=== PATIENT | female | born 1985 | race Caucasian/White ===

== ENCOUNTER 2016-04-07 15:45 | Emergency (ER) ==
[2016-04-07 16:03] VITALS: BP 148/88
[2016-04-07 16:18] LABS: URINE MICRO REVIEW NEEDED? NO; URINE SOURCE CLEAN CATCH
[2016-04-07 16:28] LABS: BILIRUBIN URINE NEGATIVE (NEGATIVE); BLOOD URINE SMALL (NEGATIVE); COLOR YELLOW; GLUCOSE URINE NEGATIVE (NEGATIVE); LEUKOCYTES URINE SMALL (NEGATIVE); NITRITE URINE POSITIVE (NEGATIVE); PH URINE 5.5; PROTEIN URINE TRACE mg/dL (NEGATIVE); SP GRAVITY URINE 1.017; TURBIDITY URINE CLEAR (CLEAR); UROBILINOGEN URINE NORMAL (NORMAL)
[2016-04-07 16:32] LABS: UR EPITHELIAL CELLS <10 /HPF (<10); URINE BACTERIA 4+ /HPF; URINE CULTURE NEEDED? YES; URINE RBC <10 /HPF (<10)
[2016-04-07] MEDS ORDERED: ZOFRAN ODT PO ONE (17:09)
[2016-04-07] MEDS ORDERED: XYLOCAINE-MPF 1% INJ ONE (17:09)
[2016-04-07] MEDS ORDERED: ULTRAM PO ONE (17:09)
[2016-04-07] MEDS ORDERED: ROCEPHIN IM ONE (17:09)
--- NOTE | 2016-04-07 17:17 | PROVIDER DOCUMENTATION ---
HPI-Female /OB/Breast - General Chief Complaint: General Adult Stated Complaint: chills,nausea,dizzy,lt side pain Time Seen by Provider: 04/07/16 16:59 Source: reports: patient Allergies/Adverse Reactions: Patient Allergies Allergy/AdvReac Type Severity Reaction Status Date / Time povidone-iodine Allergy Unknown Verified 08/26/15 11:27 [From Betadine] soap * [From Betadine] Allergy Unknown Verified 08/26/15 11:27 - History of Present Illness-Female /OB Nature of Presenting Problem: Pt is 31 y/o F presents to the ED with L flank pain radiates to the L side back. Pt states ovarian cyst in past. Pt states symptoms started yesterday. Pt states N and dizziness. Pt states chills and possible F. Does patient report she is ?: No Location of complaint: reports: left flank Radiation: reports: back (L side) Quality of Pain: reports: aching, cramping Severity in ED: reports: moderate Onset/Duration: reports: 24 hours ago Timing: reports: still present, intermittent Context/Activities at Onset: reports: light activity Vaginal Symptoms: reports: no symptoms Vaginal Bleeding Amount: None Urinary Symptoms: reports: frequency. denies: anuria, dysuria, dribbling, hematuria, hesitancy, incontinent, nocturia, polyuria, retention, urgency, low back pain Related Symptoms: reports: no symptoms Leakage of Fluid: none Sexual intercourse history: reports: Single Partner Contraception: reports: none Modifying Factors: improves with: nothing Associated Symptoms: reports: anxiety, dizziness, fever/chills, nausea. denies : back/neck pain, chest pain, constipation, cough, diaphoresis, diarrhea, fatigue, joint pain, loss of appetite, malaise, muscle aches, rash, seizure, sensory/motor loss, swelling/mass in abdomen, syncope, vomiting, weakness, trouble walking Similar Symptoms Previously?: Yes Recently seen or treated by another doctor?: No Review of Systems - Adult - REVIEW OF SYSTEMS - ADULT Constitutional: reports: chills, fever Eyes: denies: blurred vision, double vision Ears, Nose, Mouth & Throat: denies: ear pain, nose pain, throat pain Cardiovascular: reports: irregular heart rate (tachy). denies: chest pain, heart murmur Respiratory: denies: cough, shortness of breath, wheezing Gastrointestinal: reports: abdominal pain (L flank), nausea. denies: diarrhea, poor appetite, vomiting Genitourinary: denies: dysuria, hematuria Musculoskeletal: reports: back pain (L side). denies: bone pain, joint pain, neck pain Integumentary: denies: hives, itching Neurological: reports: dizziness/vertigo (dizziness). denies: headache/ migraines Psychiatric: reports: no symptoms reported Endocrine: reports: no symptoms reported Hematologic/Lymphatic: reports: no symptoms reported Allergic/Immunologic: reports: no symptoms reported All Other Systems: Reviewed and Negative Past History - Adult - PAST MEDICAL HISTORY-ADULT Review of Records: reports: Nursing Assessment Review, Medications Reviewed, Social history reviewed & non-contributory. Major Childhood Illnesses: reports: denies history Cardiovascular: reports: HTN Respiratory: reports: denies history Gastrointestinal: reports: denies history Obstetrical/Gynecological: reports: denies history Genitourinary: reports: chronic UTI's, other (Endometriosis) Musculoskeletal: reports: other (Shoulder dislocation) Neurological: reports: past injury Endocrine/Immune: reports: denies history Other Conditions: reports: denies history - PRIOR SURGERIES/PROCEDURES Surgical/Procedure History: reports: - PRIOR HOSPITALIZATIONS Prior Hospitalizations: reports: none - IMMUNIZATION STATUS Childhood Immunizations: See Nurse Assessment Flu Vaccine: See Nurse Assessment - FAMILY HISTORY Family History: reviewed, not pertinent - SOCIAL HISTORY Smoking: cigarettes, greater than 1 pack/day Provider spent 3-5 mins advising pt. on dangers of tobacco.: Discussed manners to quit use, and f/u contacts for add'l counseling. Substance Use: alcohol, marijuana Alcohol Use Frequency: occasionally Number of drinks per typical drinking period:: 3-4 drinks Living Situation: family Physical Exam-General - PHYSICAL EXAM-ADULT Initial Vital Signs Reviewed: Yes - CONSTITUTIONAL General Appearance: alert, mild distress, anxious. negative: appears well (ill in appearance) - EYES Eyes: PERRL/EOMI, pink conjunctivae - HEAD, EARS, NOSE, MOUTH & THROAT HENMT: normocephalic/atraumatic, moist mucous membranes, normal ENT inspection - NECK Neck: non-tender, full range of motion, normal inspection - RESPIRATORY Respiratory: chest non-tender, lungs clear, normal breath sounds - CARDIOVASCULAR Cardiovascular: normal peripheral pulses, no edema, tachycardia - GASTROINTESTINAL (ABDOMEN) Abdominal Exam: normal bowel sounds, soft, tenderness (L flank and LLQ) - LYMPHATIC Lymphatic: no adenopathy - MUSCULOSKELETAL Back Exam: normal inspection, no vertebral tenderness, CVA tenderness (L side) Extremity: normal range of motion, non-tender, normal gait - SKIN Integumentary: normal color, normal turgor, warm/dry - NEUROLOGIC 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-XII nml as tested, grossly normal, no motor/sensory deficits - PSYCHIATRIC Psych/Mental Status: normal thought content, normal thought process, oriented x 3, anxious Progress - PLAN OF CARE/RESULTS Progress/Plan/Lab Results: Laboratory Tests 04/07/16 16:10 Urine Source CLEAN CATCH Urine Color YELLOW Urine Turbidity CLEAR Urine pH 5.5 Ur Specific [place] 1.017 Urine Protein TRACE A Ur Glucose (Stick) NEGATIVE Ur Ketones (Stick) NEGATIVE Urine Blood SMALL A Urine Nitrite POSITIVE A Urine Bilirubin NEGATIVE Urobilinogen Dipstick NORMAL Urine Leukocytes SMALL A Urine WBC (Auto) 10-20 A Urine RBC (Auto) <10 U Epithel Cells (Auto) <10 Urine Bacteria (Auto) 4+ Orders Category Date Time Status UA NIMS W/REFLEX CULT [URINALYSIS] Stat Lab 04/07/16 16:10 Completed URINE CULTURE [RM] Routine Lab 04/07/16 17:13 Received CefTRIAXONE [Rocephin] Med 04/07/16 17:09 Discontinued 1 gm IM NOW ONE Lidocaine 1% Pf [Xylocaine-Mpf 1%] Med 04/07/16 17:09 Discontinued 5 ml INJ NOW ONE Ondansetron Odt [Zofran Odt] Med 04/07/16 17:09 Discontinued 4 mg PO NOW ONE Tramadol [Ultram] Med 04/07/16 17:09 Discontinued 50 mg PO NOW ONE EKG [EKG] Stat Ther 04/07/16 16:05 Ordered Vital Signs - 24 hr 04/07/16 16:00 Temperature 99.5 F Pulse Rate 115 H Respiratory 20 Rate Blood Pressure 148/88 O2 Sat by Pulse 100 Oximetry - EKG 1 Time of EKG reading by physician:: 16:08 EKG Read and Signed by:: Dinh Hudson EKG Interpretation (*Must complete 3 of following elements*): Abnormal Rate: 114 Rhythm: sinus tachycardia Comments: possible L atrial enlargement; nonspecific ST abnormality Departure - Departure Time of Disposition Order: 17:19 DIAGNOSIS: Pyelonephritis UTI (urinary tract infection) Qualifiers: Urinary tract infection type: site unspecified Hematuria presence: without hematuria Qualified Code(s): N39.0 - Urinary tract infection, site not specified Disposition: HOME 01 Certified Medical Emergency: Emergent Condition: Stable Additional Instructions: Follow up with Primary Physician Tuesday. ED Follow Up Instructions: You have been treated by a care provider in the Emergency Department. These instructions are being provided to you so you can have an understanding of how to care for yourself upon discharge. Upon discharge from the Emergency Department, you are responsible for making arrangements for follow-up care by a physician of your choice. Take all prescribed medications as directed. Return to the Emergency Department immediately for any new or worsening symptoms. You may call the Physician Referral phone number at [phone] to obtain a list of Physicians who are taking new patients. Prescriptions: Ciprofloxacin HCl [Cipro] 500 mg PO BID 10 Days Hydrocodone/Acetaminophen [[place] 7.5-325 Tablet] 1 each PO TID PRN PRN #15 tablet PRN Reason: Pain Promethazine [Phenergan] 25 mg PO Q6H PRN PRN #20 tablet PRN Reason: Pain Referrals: Eitan John [Primary Care Provider] - Attestation - Scribe Verification/Attestation Scribe:: Dara Flores Acting as Scribe for:: Dinh Hudson Scribe documention review:: This chart was documented by a scribe and accurately reflects the service the provider performed and the decisions made by the provider.
--- NOTE | 2016-04-08 10:52 | EKG Report ---
Test Performed on : 04/07/2016 4:08:20 PM Test Reason : pain Blood Pressure : / mmHG Vent. Rate : 114 BPM Atrial Rate : 114 BPM P-R Int : 128 ms QRS Dur : 078 ms QT Int : 308 ms P-R-T Axes : 073 075 028 degrees QTc Int : 424 ms Sinus tachycardia. Possible Left atrial enlargement Nonspecific ST abnormality Abnormal ECG No previous ECGs available Unconfirmed Result
== END 2016-04-07 18:00 | disposition home or self-care (01) ==
LOC: ED 15:45
DX: N12 Tubulo-interstitial nephritis, not specified as acute or chronic (principal); N39.0 Urinary tract infection, site not specified; R10.9 Unspecified abdominal pain; R10.32 Left lower quadrant pain; R00.0 Tachycardia, unspecified; M54.9 Dorsalgia, unspecified; R11.0 Nausea; R42 Dizziness and giddiness; R35.0 Frequency of micturition; R50.9 Fever, unspecified; I10 Essential (primary) hypertension; Z87.440 Personal history of urinary (tract) infections; N80.9 Endometriosis, unspecified; F17.210 Nicotine dependence, cigarettes, uncomplicated; Z71.6 Tobacco abuse counseling
CPT/HCPCS: 81001; 87077; 87088; 87186; 93005; 96372; J0696

== ENCOUNTER 2019-04-20 14:27 | Inpatient (IN) ==
[2019-04-20] MEDS ORDERED: SALINE LOCK IV FLUID XX ONE (15:19)
[2019-04-20] MEDS ORDERED: TUBERSOL ID ONE (15:20)
[2019-04-20] MEDS ORDERED: PHENOBARBITAL IV PRN (15:20)
[2019-04-20] MEDS ORDERED: MAALOX PLUS LIQUID PO PRN (15:20)
[2019-04-20] MEDS ORDERED: D5W 1,000 ML IV PRN (15:20)
[2019-04-20] MEDS ORDERED: DULCOLAX PR PRN (15:20)
[2019-04-20] MEDS ORDERED: ZOFRAN IV PRN (15:20)
[2019-04-20] MEDS ORDERED: DESYREL PO PRN (15:20)
[2019-04-20] MEDS ORDERED: IMODIUM PO PRN (15:20)
[2019-04-20] MEDS ORDERED: LIBRIUM PO SCH (15:30)
[2019-04-20] MEDS ORDERED: M.V.I.-12 10 ML, FOLIC ACID 1 MG, MAGNESIUM SULFATE 1 GM, THIAMINE 100 MG in NS 1,000 ML IV ONE (16:00)
[2019-04-20 16:25] LABS: URINE SOURCE VOIDED
[2019-04-20 16:26] LABS: BILIRUBIN URINE NEGATIVE (NEGATIVE); BLOOD URINE NEGATIVE (NEGATIVE); COLOR YELLOW; GLUCOSE URINE NEGATIVE (NEGATIVE); KETONE URINE NEGATIVE (NEGATIVE); LEUKOCYTES URINE NEGATIVE (NEGATIVE); NITRITE URINE NEGATIVE (NEGATIVE); PH URINE 6.5; PROTEIN URINE TRACE mg/dL (NEGATIVE); SP GRAVITY URINE 1.026; TURBIDITY URINE HAZY (CLEAR); UR EPITHELIAL CELLS <10 /HPF (<10); URINE BACTERIA 2+ /HPF; URINE RBC <10 /HPF (<10); URINE WBC 20-40 /HPF (<10); UROBILINOGEN URINE 2 mg/dL (NORMAL)
[2019-04-20 16:38] LABS: UR AMPHETAMINES QUAL NONE DETECTED (NONE DETECT); UR BARBITUATES QUAL NONE DETECTED (NONE DETECT); UR BENZODIAZEPIN QUAL NONE DETECTED (NONE DETECT); UR CANNABINOIDS QUAL PRESUMPTIVE POSITIVE (NONE DETECT); UR COCAINE QUAL NONE DETECTED (NONE DETECT); UR METHADONE QUAL PRESUMPTIVE POSITIVE (NONE DETECT); UR METHAMPHETAMINE QUAL NONE DETECTED (NONE DETECT); UR OPIATES QUAL NONE DETECTED (NONE DETECT); UR OXYCODONE QUAL NONE DETECTED (NONE DETECT); UR PCP QUAL NONE DETECTED (NONE DETECT); UR PROPOXYPHENE QUAL NONE DETECTED (NONE DETECT); UR TCA QUAL NONE DETECTED (NONE DETECT)
[2019-04-20 16:41] LABS: AMYLASE 55 U/L (20-200); LIPASE 44 U/L (13-60)
[2019-04-20] MEDS: TYLENOL PO PRN (17:15)
[2019-04-20] MEDS: NICODERM PATCH TD PRN (21:54)
[2019-04-20] MEDS: LIBRIUM PO SCH (21:54)
[2019-04-20] MEDS: TORADOL IV PRN (21:54)
[2019-04-20] MEDS: SEROQUEL PO PRN (21:54)
[2019-04-21] MEDS: LIBRIUM PO SCH ×4 (03:14→21:21)
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
[2019-04-21] MEDS: TYLENOL PO PRN ×2 (04:18→19:38)
[2019-04-21] MEDS: TORADOL IV PRN ×3 (04:23→21:21)
[2019-04-21] MEDS: BENTYL PO PRN ×2 (05:08→14:43)
[2019-04-21 05:56] LABS: ESTIMATED GFR > 60
[2019-04-21 06:00] LABS: AGAP 10; ALBUMIN 3.9 g/dL (3.5-5.0); ALKALINE PHOSPHATASE 57 U/L (32-104); BUN 10 mg/dL (8-22); CALCIUM 8.9 mg/dL (8.8-10.2); CHLORIDE 108 mmol/L (98-107); COSMO 286; CREATININE 0.4 mg/dL (0.5-0.9); GLUCOSE 108 mg/dL (70-104); GOT 12 U/L (10-30); GPT < 5 U/L (10-36); POTASSIUM 3.8 mmol/L (3.5-5.1); SODIUM 144 mmol/L (136-145); TCO2 26 mmol/L (25-35); TOTAL PROTEIN 6.4 g/dL (6.3-8.3)
[2019-04-21] MEDS: PROTONIX PO SCH (06:27)
[2019-04-21 06:45] LABS: HEMATOCRIT 36.7 % (37.0-47.0); HEMOGLOBIN 11.5 g/dL (12.0-16.0); MCH 31.3 PG (27-31); MCHC 31.3 g/dL (33-37); MCV 99.7 FL (81-99); MPV 11.2 FL (7.4-10.4); RBC 3.68 XMIL (4.2-5.4); RDW 13.1 % (11.5-14.5); WBC 5.97 X1000 (4.8-10.8)
[2019-04-21] MEDS: FOLIC ACID PO SCH (10:48)
[2019-04-21] MEDS: PROZAC PO SCH (10:49)
[2019-04-21] MEDS: THERA M PLUS PO SCH (10:49)
[2019-04-21] MEDS: VITAMIN B-1 PO SCH (10:49)
[2019-04-21] MEDS: ATARAX PO PRN (14:44)
[2019-04-21] MEDS ORDERED: SUBUTEX SL ONE (17:00)
--- NOTE | 2019-04-21 19:17 | PROGRESS NOTE ---
DATE: 04/21/2019 SUBJECTIVE: Patient notes that she is feeling tremendously better than she did on admit. Still having some muscle aches and sweating episodes, but all that is improved. She slept a little bit last night. PHYSICAL EXAMINATION: Vital Signs: Reviewed. Temp 98 degrees, pulse 84, respiratory rate 18, BP 118/78. General: Patient is pleasant. She is in no current respiratory distress. HEENT: Normocephalic. Neck: Supple. Cardiovascular: Regular rate. Chest: Clear. Abdomen: Soft. Extremities: Moves all extremities. Neurologic: No focal changes. ASSESSMENT: 1. Nausea, vomiting. 2. Abdominal pain. 3. Myalgias. 4. Paresthesias. 5. Paroxysmal sweating. 6. Opiate abuse withdrawal and stabilization. PLAN: We will continue Librium taper. We will start adding Subutex and continue Toradol and counseling. Further orders as needed. cc: Moises Renee MD
[2019-04-21] MEDS: ROBAXIN PO PRN (19:38)
[2019-04-21] MEDS: NICODERM PATCH TD PRN (19:52)
[2019-04-21] MEDS: SEROQUEL PO PRN (21:21)
[2019-04-22] MEDS: LIBRIUM PO SCH ×4 (02:45→21:15)
[2019-04-22] MEDS: TORADOL IV PRN ×3 (05:26→22:47)
[2019-04-22] MEDS: PROTONIX PO SCH ×2 (05:58→06:04)
[2019-04-22] MEDS: TYLENOL PO PRN ×2 (05:58→13:24)
[2019-04-22] MEDS: ZOFRAN ODT PO PRN (06:04)
[2019-04-22] MEDS: ROBAXIN PO PRN ×2 (08:50→18:02)
[2019-04-22] MEDS: VITAMIN B-1 PO SCH (08:50)
[2019-04-22] MEDS: THERA M PLUS PO SCH (08:50)
[2019-04-22] MEDS: FOLIC ACID PO SCH (08:50)
[2019-04-22] MEDS: PROZAC PO SCH (08:50)
[2019-04-22] MEDS: SUBUTEX SL SCH ×2 (12:05→21:15)
[2019-04-22] MEDS: NICODERM PATCH TD PRN (12:05)
[2019-04-22] MEDS ORDERED: SUBUTEX SL ONE ×2 (14:00→15:00)
[2019-04-22] MEDS: ATARAX PO PRN (18:01)
--- NOTE | 2019-04-22 18:33 | PROGRESS NOTE ---
DATE: 04/22/2019 SUBJECTIVE: The patient notes that she is feeling terrible this morning. She is having increased muscle aches, increased nausea. States that the Subutex last night helped, but did not last very long. PHYSICAL EXAMINATION: Vital Signs: Reviewed. Temp 98 degrees, pulse 92, respiratory rate 18, BP 129/79. General: The patient is pleasant. She is in no respiratory distress. She is somewhat ill appearing. HEENT: Normocephalic. Neck: Supple. Cardiovascular: Regular rate. Chest: Clear. Abdomen: Soft. Extremities: Moves all extremities. ASSESSMENT: 1. Muscle aches. 2. Myalgias. 3. Paresthesias. 4. Paroxysmal sweating. 5. Opiate abuse withdrawal and stabilization. 6. Tobacco abuse. PLAN: We will continue the patient in the hospital. We are going to increase Subutex 4 twice daily. We will continue counseling. Further orders as needed. cc: Moises Renee MD
[2019-04-22] MEDS: SEROQUEL PO PRN (21:16)
[2019-04-23] MEDS: LIBRIUM PO SCH ×4 (05:39→20:18)
[2019-04-23] MEDS: PROTONIX PO SCH ×2 (05:44→06:41)
[2019-04-23] MEDS: TORADOL IV PRN ×3 (05:44→18:54)
[2019-04-23] MEDS: ROBAXIN PO PRN ×2 (05:44→18:03)
[2019-04-23] MEDS: VITAMIN B-1 PO SCH (10:05)
[2019-04-23] MEDS: SUBUTEX SL SCH ×2 (10:05→20:17)
[2019-04-23] MEDS: PROZAC PO SCH (10:05)
[2019-04-23] MEDS: FOLIC ACID PO SCH (10:05)
[2019-04-23] MEDS: THERA M PLUS PO SCH (10:05)
[2019-04-23] MEDS: ATARAX PO PRN ×2 (10:09→20:19)
[2019-04-23] MEDS ORDERED: SUBUTEX SL ONE (14:00)
--- NOTE | 2019-04-23 18:44 | PROGRESS NOTE ---
DATE: 04/23/2019 SUBJECTIVE: Patient notes that she feels absolutely terrible this morning although she did feel better last night after getting the Subutex. Denies any fevers or chills. Denies nausea. She is just having lots of muscle aches and sweating. OBJECTIVE: Temperature 93, pulse 92, respiratory rate 18, and BP 125/79.General: Patient is awake and pleasant currently in no respiratory distress. HEENT: Normocephalic. Neck: Supple. Cardiovascular: Regular rate. Chest: Clear. Abdomen: Soft. Extremities: Moves all extremities. Neurologic: No changes. ASSESSMENT: 1. Nausea and vomiting. 2. Abdominal pain. 3. Myalgias. 4. Paresthesias. 5. Paroxysmal sweating. 6. Opiate abuse withdrawal and stabilization. PLAN: We will continue patient in the hospital. We are going to increase her Subutex to 8 twice daily for this afternoon and will follow. cc: Moises Renee MD
[2019-04-23] MEDS: SEROQUEL PO PRN (20:19)
[2019-04-23] MEDS: SENOKOT PO PRN (22:59)
[2019-04-23] MEDS: NICOTINE GUM BUCCAL PRN (23:00)
[2019-04-24] MEDS: ROBAXIN PO PRN ×3 (00:31→23:03)
[2019-04-24] MEDS: TORADOL IV PRN ×4 (00:31→19:29)
[2019-04-24] MEDS: ATARAX PO PRN ×3 (00:31→23:04)
[2019-04-24] MEDS: NICOTINE GUM BUCCAL PRN ×4 (06:00→23:44)
[2019-04-24] MEDS: PROTONIX PO SCH (06:01)
[2019-04-24] MEDS: SUBUTEX SL SCH ×3 (09:55→17:00)
[2019-04-24] MEDS: LIBRIUM PO SCH ×3 (09:55→21:13)
[2019-04-24] MEDS: PROZAC PO SCH (09:55)
[2019-04-24] MEDS: VITAMIN B-1 PO SCH (09:55)
[2019-04-24] MEDS: THERA M PLUS PO SCH (09:55)
[2019-04-24] MEDS: FOLIC ACID PO SCH (09:55)
[2019-04-24] MEDS ORDERED: LACTULOSE PO ONE (10:03)
--- NOTE | 2019-04-24 19:01 | PROGRESS NOTE ---
DATE: 04/24/2019 SUBJECTIVE: The patient actually is feeling a little bit better this morning. For the first time, she is not tossing back and forth writhing in pain in her exam bed. She notes that her myalgias have improved and her sweating has improved, although they do come back quickly when Subutex wears off. PHYSICAL EXAMINATION: Vital Signs: Reviewed. Temperature 98, pulse 92, respiratory rate 18, BP 125/79. General: Patient is pleasant, currently in no respiratory distress. HEENT: Normocephalic. Neck: Supple. Cardiovascular: Regular rate. Chest: Clear. Abdomen: Soft. Extremities: Moves all extremities. ASSESSMENT: 1. Nausea, vomiting. 2. Abdominal pain. 3. Myalgias. 4. Paresthesias. 5. Paroxysmal sweating. 6. Opiate abuse withdrawal and stabilization. PLAN: We are going to continue patient in the hospital. Continue to follow. Further orders as needed. We are going to increase her Subutex to 8 three times daily to see if this will eliminate her symptoms, and hopefully home soon. cc: Moises Renee MD
[2019-04-24] MEDS: SEROQUEL PO PRN (23:03)
[2019-04-24] MEDS: SENOKOT PO PRN (23:03)
[2019-04-25] MEDS: TORADOL IV PRN ×2 (01:45→09:04)
[2019-04-25] MEDS: PROTONIX PO SCH (06:51)
[2019-04-25] MEDS: LIBRIUM PO SCH ×2 (09:03→15:49)
[2019-04-25] MEDS: VITAMIN B-1 PO SCH (09:03)
[2019-04-25] MEDS: SUBUTEX SL SCH ×2 (09:03→15:49)
[2019-04-25] MEDS: THERA M PLUS PO SCH (09:03)
[2019-04-25] MEDS: PROZAC PO SCH (09:03)
[2019-04-25] MEDS: FOLIC ACID PO SCH (09:04)
[2019-04-25 11:43] VITALS: BP 113/74
[2019-04-25] MEDS: ATARAX PO PRN (12:19)
[2019-04-25] MEDS: NICODERM PATCH TD PRN (12:20)
[2019-04-25] MEDS ORDERED: LACTULOSE PO ONE (12:28)
[2019-04-25] MEDS: ZOFRAN ODT PO PRN (15:49)
--- NOTE | 2019-04-25 22:44 | DISCHARGE SUMMARY ---
ADMISSION DATE: 04/20/2019 DISCHARGE DATE: 04/25/2019 DISCHARGE DIAGNOSIS: 1. Nausea, vomiting. 2. Abdominal pain. 3. Myalgias. 4. Paresthesias. 5. Paroxysmal sweating. 6. Opiate abuse, withdrawal and stabilization . 7. Chronic anxiety, depression. CONSULTATION: None. PROCEDURE: None. HOSPITAL COURSE: The patient is 34-year-old female who presented the hospital treated in usual fashion, placed on Subutex secondary to her withdrawal, counseling was performed each day. On discharge she is awake, alert, she is in no distress . She did have a prolonged hospital stay secondary to the amount of methadone that she was on prior to coming the hospital. Will continue to follow, continue Subutex at 8 mg 3 times daily. Discussed with her that she will need to transition to Suboxone after 1 or 2 months. Greater 30 minutes was spent in total care and counseling each day. Discussed with patient she is to avoid all persons, places, situations which she has been using and abusing in the past. cc: Moises Renee MD
== END 2019-04-25 16:08 | disposition home or self-care (01) | DRG 897 ==
LOC: P.DIRADM 14:27 → P.MEDSURG 15:05
PROVIDERS: ADMIT Family Medicine; ATTEND Family Medicine